=== PATIENT | female | born 1955 | race Caucasian/White ===

== ENCOUNTER 2021-07-13 07:23 | Emergency (ER) | payer MEDICAID, SELFPAY ==
[2021-07-13 07:24] VITALS: BP 153/67; PULSE 92; RESP 28; TEMP 36.7; O2SAT 60; BMI 22.0
--- NOTE | 2021-07-13 07:34 | ECG_ITS ---
APPROVED REPORT Exam: Resting ECG HR:99 bpm ECG Measurements Heart Rate 99 AXES MN 304 P 79 QRSd 130 QRS 61 QT 381 T 72 QTc 437 Conclusion ELECTRONIC ATRIAL PACEMAKer Marked artifact noted UNCONFIRMED REPORT Electronically signed by : José Miguel Álvarez MD 07/13/2021 17:55:49
--- NOTE | 2021-07-13 07:43 | PC.NURSE ---
Notified RT of G
--- NOTE | 2021-07-13 07:43 | XR_ITS ---
FINAL REPORT CLINICAL HISTORY: SOA, low O2 FINDINGS: A single portable view of the chest was obtained. The heart size is within normal limits. The mediastinum is within normal limits. The lungs are hyperinflated consistent with COPD. There is pulmonary vascular congestion. There are bilateral pulmonary opacities, favor edema over pneumonia. The bony thorax is intact. IMPRESSION: Pulmonary vascular congestion with bilateral pulmonary opacities favoring edema over pneumonia. Reviewed, Interpreted and Dictated by Dawson Olmos III, MD Transcribed by Ayo Molina Authenticated by Dawson Olmos III, MD on 07/13/2021 08:36:05 AM [facility]
--- NOTE | 2021-07-13 07:45 | PC.NURSE ---
Notified Rad of CXR
[2021-07-13 08:02] LABS: ABG Base Excess 13.2 mmol/L (-2.4-2.3); ABG HCO3 40.2 mmhg (22.0-26.0); ABG Oxygen Saturation 96 % (90-100); ABG PH 7.27 mmol/L (7.35-7.45); ABG PO2 90.5 mmhg (80-100); ABG TCO2 42.9 mmhg (23-27)
[2021-07-13 08:05] LABS: Allen's Test ACCEPTABLE; Source R RADIAL
[2021-07-13 08:06] VITALS: RESP 20; RESP 29
[2021-07-13 08:06] LABS: ABG PCO2 90.3 mmhg (35.0-45.0)
--- NOTE | 2021-07-13 08:08 | HMH.EDGENADL ---
ED Disposition Clinical Impression: COPD exacerbation Respiratory failure with hypoxia and hypercapnia Qualifiers: Chronicity: acute Qualified Code(s): J96.01 - Acute respiratory failure with hypoxia CHF (congestive heart failure) Qualifiers: Heart failure type: unspecified Heart failure chronicity: acute Qualified Code(s): I50.9 - Heart failure, unspecified Disposition: Left Against Medical Advice Condition on Discharge: Serious Additional Instructions: Levaquin and prednisone as prescribed. Follow-up with Dr. Diaz in his office tomorrow. Return to the emergency department if shortness of breath worsens. Prescriptions: levoFLOXacin [Levaquin 500mg tab] 500 mg PO DAILY #9 tab Transmission Status: Pending to [facility] predniSONE [Prednisone 20mg Tab] 20 mg PO BID #10 tab Transmission Status: Pending to [facility] Referrals: Jenifer Monsalve [Primary Care Provider] - - Critical Care Critical Care Time: Yes Attestation: On 07/13/21, the high probability of a clinically significant, sudden or life threatening deterioration of the following system(s) required my full and direct attention, intervention and personal management. The time I documented below is in addition to time spent performing reported procedures but includes the following listed in this critical care notation. Total Critical Care Time: 30 Vital system(s) involved:: Respiratory Failure My critical care processes included: Assessment & monitoring of V/S, Initial and Re-exams, Data Review/Interpretation, Coordinating Care, Medication Orders and management, Documentation Medical Decision Making - [place] Inquiry Pt receiving controlled substance: No Vital Signs: 07/13/21 07:24 07/13/21 08:15 Temperature 98.1 F Temperature Source Oral Pulse Rate 97 H Pulse Rate [Right Radial] 92 H Respiratory Rate 28 H Blood Pressure [Right Arm] 153/67 H Blood Pressure Mean [Right Arm] 95 Blood Pressure Source [Right Arm] Automatic Cuff Blood Pressure Position [Right Arm] Sitting 02 Sat by Pulse Oximetry 60 L Oxygen Delivery Method Nasal Cannula Oxygen Flow Rate (LPM) 2 - Lab Data Lab Results 07/13/21 07:45: WBC 9.8, RBC 4.71, Hgb 14.2, Hct 44.6, MCV 94.6, MCH 30.2, MCHC 31.9, RDW 16.8, Plt Count 348, MPV 8.4, Neut % (Auto) 78.8, Lymph % (Auto) 12.9, [place] % (Auto) 6.6, Eos % (Auto) 0.2, Baso % (Auto) 1.5, Neut # (Auto) 7.7, Lymph # (Auto) 1.3, [place] # (Auto) 0.6, Eos # (Auto) 0.0, Baso # (Auto) 0.1 07/13/21 07:45: Sodium 134 L, Potassium 4.2, Chloride 85 L, Carbon Dioxide 40 H, Anion Gap 13.2, BUN 19 H, Creatinine 0.80, Estimated Creat Clear 42, Estimated GFR 72, Est GFR ( Amer) 87, Glucose 110 H, Calcium 9.6, Total Bilirubin 0.6, AST 55 H, ALT 36, Alkaline Phosphatase 180 H, Total Protein 7.9, Albumin 3.8, Globulin 4.1 H, Albumin/Globulin Ratio 0.9 L 07/13/21 07:45: Lactate 1.4 07/13/21 07:48: SARS-CoV-2 (PCR) Not detected, Influenza A Untype (PCR) Not detected, Influenza Type B (PCR) Not detected 07/13/21 07:48: Troponin I 0.02, NT-Pro-B Natriuret Pep 658 H 07/13/21 07:59: Specimen Source R radial, O2 % 5lpm, ABG pH 7.27 L, ABG pCO2 90.3 H, ABG pO2 90.5, ABG HCO3 40.2 H, ABG Total CO2 42.9 H, ABG O2 Saturation 96, ABG Base Excess 13.2 H, Phil Test Acceptable Result diagrams: 07/13/21 07:45 07/13/21 07:45 Orders (Tests/Meds): ED MEDICATIONS Generic Name Dose Route Start Last Admin Trade Name Freq PRN Reason Stop Dose Admin Albuterol/Ipratropium 3 ml 07/13/21 10:00 Ipratropium/Albuterol 3 Ml Neb IH 08/12/21 09:59 QIDRT MARY Levofloxacin/Dextrose 750 mg in 150 mls @ 100 mls/hr 07/13/21 09:21 Levofloxacin 750mg/150ml Premix IV 07/27/21 09:14 Q48H MARY Sodium Chloride 10 ml 07/13/21 07:43 Sodium Chloride 0.9% 10ml Flush Syringe IV 08/12/21 07:42 NEEDED PRN Maintain IV Site Discontinued Medications Generic Name Dose Route Start Last Admin Trade Name Freq PRN Re
[2021-07-13 08:09] LABS: Basophils # 0.1 K/mm3 (0-0.2); Basophils % 1.5 % (0.1-2.0); Eosinophils % 0.2 % (0.1-12.0); Hematocrit 44.6 % (37.0-47.0); Hemoglobin 14.2 g/dL (12.2-16.2); Lymphocytes # 1.3 K/mm3 (0.7-4.5); Lymphocytes % 12.9 % (10-50); Mean Corpuscular HGB Conc 31.9 g/dL (31.8-35.4); Mean Corpuscular Hemoglobin 30.2 pg (27.0-31.2); Mean Corpuscular Volume 94.6 fl (81-99); Mean Platelet Volume 8.4 fl (7.4-10.4); Monocytes # 0.6 K/mm3 (0.1-1.0); Monocytes % 6.6 % (1.7-9.3); Neutrophils # 7.7 K/mm3 (1.8-7.8); Neutrophils % 78.8 % (37.0-80.0); Platelet Count 348 K/mm3 (142-424); Red Blood Count 4.71 M/mm3 (4.20-5.40); Red Cell Distribution Width 16.8 % (11.5-17.5); White Blood Count 9.8 K/mm3 (4.8-10.8)
[2021-07-13 08:13] LABS: Coronavirus 19, PCR Not Detected (NotDetected); Influenza A, PCR Not Detected (NotDetected); Influenza B, PCR Not Detected (NotDetected)
[2021-07-13 08:15] VITALS: PULSE 97; PULSE 98; RESP 20
[2021-07-13 08:18] LABS: Lactic Acid 1.4 mmol/L (0.7-2.1)
[2021-07-13 08:29] LABS: Alanine Aminotransferase 36 U/L (12-78); Albumin Level 3.8 g/dl (3.5-5.0); Albumin/Globulin Ratio 0.9 (1.1-1.8); Aspartate Amino Transferase 55 U/L (14-36); Bilirubin,Total 0.6 mg/dl (0.2-1.3); Blood Urea Nitrogen 19 mg/dl (7-17); Calcium 9.6 mg/dl (8.4-10.2); Chloride 85 mmol/L (98-107); Creatinine Clearance Estimated 42 mL/min (50-200); Estimated Glomerular Filt Rate 72 ml/min (>60); GFR (African American) 87 ML/MIN (>60); Globulin 4.1 g/dL (1.3-3.2); Glucose 110 mg/dl (74-100); Potassium 4.2 mmoL/L (3.5-5.1); Sodium 134 mmol/L (136-145); Total Protein,Serum 7.9 g/dl (6.3-8.2)
[2021-07-13 08:36] LABS: Anion Gap 13.2 mEq/L (5-15); Carbon Dioxide 40 mmol/L (22.0-30.0)
[2021-07-13 08:41] LABS: NT Pro Brain Natriuretic Pep. 658 pg/mL (0-125); Troponin I 0.02 ng/ml (0.00-0.034)
[2021-07-13 08:47] LABS: Alkaline Phosphatase 180 U/L (38-126)
--- NOTE | 2021-07-13 09:01 | CA_ITS ---
APPROVED REPORT EXAM: Comprehensive 2D, Doppler, and color-flow Echocardiogram Dairy Husbandman: Aisha Peterson, RT(R) Ht: 4 ft 9 in Wt: 102lbs BSA: 1.35 BP: 153/67 mmHg Indications: SOA, COPD, smoker, GERD. 2D Dimensions LVOT 1.76 cm (M/F) 1.5-2.5 M-Mode Dimensions RVDd 1.53 cm (0.9-2.6) LA Diam 2.66 cm (1.9-4.0) LVDd 4.30 cm (3.5-5.7) Ao Diam 1.70 cm (2.0-3.7) LVDs 3.36 cm (3.5-5.7) IVSd 0.67 cm (0.6-1.1) PWd 0.56 cm (0.6-1.1) EF (Teich) 44.50% FS 21.90% EDV (Teich) 83.10 mL ESV (Teich) 46.10 mL LV Diastology E Decel Time 250.00 (160-240 msec) E/A Ratio 1.0 MED E' 6.00 (< 7 cm/sec) E'/MED E' Ratio 11.87 (>14) LAT E' 7.60 (<10 cm/sec) E/LAT E' Ratio 9.37 (>14) Mitral Valve MV E Max Darren. 71.00 (40-130 cm/s) MV A Velocity 71.00 (40-130 cm/s) E/A Ratio 1.00 MV Decel. Time 250.00 (160-240 ms) MV PHT 73.00 ms Left Ventricle Left atrium is mildly enlarged, left ventricle is normal size, mild concentric left ventricular hypertrophy, estimated ejection fraction 55% with no regional wall motion abnormality, diastolic parameters are inconclusive. Right Ventricle Right atrium and right ventricle mildly enlarged with normal contractility. Aortic Valve Aortic valve is minimally thickened and fibrosed there is no aortic stenosis or aortic insufficiency. Mitral Valve Mitral valve is grossly normal, there is trace mitral regurgitation. Tricuspid Valve Tricuspid grossly normal, there is trace tricuspid regurgitation, tricuspid regurgitation jet velocity is inadequate for calculation of the right ventricular systolic pressure. Pulmonic Valve Pulmonic valve is poorly visualized. Great Vessels Aortic root is normal size. Inferior vena cava is poorly visualized. Pericardium No significant pericardial effusion noted. Conclusion 1. Mild biatrial enlargement, normal left ventricular size, mild concentric left ventricular hypertrophy, estimated ejection fraction 55% with no regional wall motion abnormality, diastolic parameters are inconclusive. 2. Mildly enlarged right ventricle with normal contractility. 3. Trace mitral and tricuspid regurgitation. 4. No significant pericardial effusion noted. 5. Inferior vena cava is poorly visualized. Electronically signed by : Stephaen Batista MD 07/13/2021 20:55:03
--- NOTE | 2021-07-13 09:07 | PC.NURSE ---
Spoke with Dr Diaz's office and was advised that he will return our call ALFONZO
--- NOTE | 2021-07-13 09:15 | PC.NURSE ---
Dr Diaz at [facility]
--- NOTE | 2021-07-13 09:20 | PC.NURSE ---
notified cv lab of echo
--- NOTE | 2021-07-13 10:04 | PC.NURSE ---
PT WANTS TO GO HOME SHE HAS TORE OFF HER BIPAP I PLACED HER ON O2 @ 4 LPM PT ALSO REFUSES TO PUT O2 SAT BACK ON . AT TRYING TO CONVINCE HER TO STAY BUT SHE REFUSES TO STAY . AT BEDSIDE
[2021-07-13 11:31] VITALS: BP 131/80; PULSE 76; RESP 24; TEMP 36.8; O2SAT 97
== END 2021-07-13 11:35 | disposition left against medical advice (07) ==
PROVIDERS: Emergency Medicine; Emergency Provider Emergency Medicine; PCP Nurse Practitioner Family
DX: J44.1 Chronic obstructive pulmonary disease with (acute) exacerbation (principal); Z53.29 Procedure and treatment not carried out because of patient's decision for other reasons; Z72.0 Tobacco use; Z88.0 Allergy status to penicillin; Z88.1 Allergy status to other antibiotic agents; J96.01 Acute respiratory failure with hypoxia; I50.9 Heart failure, unspecified; K21.9 Gastro-esophageal reflux disease without esophagitis
CPT/HCPCS: 71045; 80053; 82803; 83605; 83880; 84484; 85025; 87040; 93005; 93306; 96374; 96375; 99291; C9803; J1956; U0003; U0005